=== PATIENT | female | born 1960 | race Caucasian/White ===

== ENCOUNTER 2020-09-15 14:14 | Emergency (ER) | payer BC ==
[2020-09-15 15:24] VITALS: BP 190/85; PULSE 68; RESP 20; TEMP 97.8
--- NOTE | 2020-09-15 16:27 | ED ---
General Adult HPI - General Source: patient, RN notes reviewed Mode of arrival: ambulatory Limitations: no limitations <Dane Baugh - Last Filed: 09/15/20 16:23> <Gayathri Nguyen - Last Filed: 09/16/20 07:55> - General Chief complaint: Recheck/Abnormal Lab/Rx Stated complaint: COVID exposure Time Seen by Provider: 09/15/20 16:23 - History of Present Illness Initial comments: 59-year-old female with a past medical history of asthma, thyroid disorder presents to the emergency room for a chief complaint of needing a covid test. Patient reports that her tested positive today. Patient reports that she has not had any symptoms of Covid. States she feels well at this time but was told she should get tested.Patient has no other complaints at this time including shortness of breath, chest pain, abdominal pain, nausea or vomiting, headache, or visual changes. (Dane Baugh) - Related Data Allergies Allergy/AdvReac Type Severity Reaction Status Date / Time egg Allergy Abdominal Verified 09/15/20 15:25 Pain Review of Systems ROS Other: All systems not noted in ROS Statement are negative. <Dane Baugh - Last Filed: 09/15/20 16:23> ROS Other: All systems not noted in ROS Statement are negative. <Gayathri Nguyen - Last Filed: 09/16/20 07:55> ROS Statement: Those systems with pertinent positive or pertinent negative responses have been documented in the HPI. Past Medical History Past Medical History: Asthma, Thyroid Disorder History of Any Multi-Drug Resistant Organisms: None Reported Past Surgical History: Tubal Ligation Additional Past Surgical History / Comment(s): thyroidectomy Past Psychological History: No Psychological Hx Reported Smoking Status: Never smoker Past Alcohol Use History: None Reported Past Drug Use History: None Reported <Dane Baugh - Last Filed: 09/15/20 16:23> General Exam Limitations: no limitations General appearance: alert, in no apparent distress Head exam: Present: atraumatic, normocephalic, normal inspection Eye exam: Present: normal appearance, PERRL, EOMI. Absent: scleral icterus, conjunctival injection, periorbital swelling ENT exam: Present: normal exam, mucous membranes moist Neck exam: Present: normal inspection. Absent: tenderness, meningismus, lymphadenopathy Respiratory exam: Present: normal lung sounds bilaterally. Absent: respiratory distress, wheezes, rales, rhonchi, stridor Cardiovascular Exam: Present: regular rate, normal rhythm, normal heart sounds. Absent: systolic murmur, diastolic murmur, rubs, gallop, clicks <Dane Baugh - Last Filed: 09/15/20 16:23> Course Vital Signs 09/15/20 15:19 Temperature 97.8 F Pulse Rate 68 Respiratory 20 Rate Blood Pressure 190/85 O2 Sat by Pulse 99 Oximetry Medical Decision Making <Dane Baugh - Last Filed: 09/15/20 16:23> <Gayathri Nguyen - Last Filed: 09/16/20 07:55> - Medical Decision Making Vitals are stable. Pt has high blood pressure in the emergency room, states she is stressed because her was admitted. It states she just saw her doctor last week and a pressure looks okay. She will follow up for this. Patient is well-appearing. Coronavirus test is negative. I did discuss risk of false negative with patient. At this time patient is stable for discharge home. She should follow up with primary care. She can return here for any worsening symptoms. (Dane Baugh) I was available for consultation in the emergency department. The history and physical exam were done by the midlevel provider. I was consulted for this patients care. I reviewed the case with the midlevel provider and based on their presentation of the patient, I agree with the assessment, medical decision making and plan of care as documented. Chart was dictated using [employer] dictation software. Attempts were made to correct any dictation errors however some typographical errors may persist. (Gayathri Nguyen) - Lab Data Lab Results 09/15/20 Range/Units 15:30 Coronavirus (PCR) Not Detected (Not Detectd) Disposition Is patient prescribed a controlled substance at d/c from ED?: No Time of Disposition: 16:26 <Dane Baugh - Last Filed: 09/15/20 16:23> <Gayathri Nguyen - Last Filed: 09/16/20 07:55> Clinical Impression: Lab test negative for COVID-19 virus Disposition: HOME SELF-CARE Condition: Good Instructions (If sedation given, give patient instructions): Coronavirus Disease 2019 (COVID-19) Additional Instructions: Please follow-up with your primary care doctor. Make sure to have your blood pressure rechecked. Return to the emergency room for any worsening symptoms. Referrals: Rosangela Kumar DO [Primary Care Provider] - 1-2 days
== END 2020-09-15 16:30 | disposition home or self-care (01) ==
LOC: EC 14:14
DX: Z20.822 Contact with and (suspected) exposure to COVID-19 (principal); J45.909 Unspecified asthma, uncomplicated
CPT/HCPCS: 87635; 99283

== ENCOUNTER 2020-10-10 16:25 | Emergency (ER) | payer BC ==
[2020-10-10] MEDS ORDERED: SODIUM CHLORIDE 0.9% 1,000 ML IV STA (17:23)
[2020-10-10] MEDS ORDERED: LORazepam 2 MG/ML INJ IV STA (17:24)
--- NOTE | 2020-10-10 17:28 | ED ---
General Adult HPI - General Chief complaint: Recheck/Abnormal Lab/Rx Stated complaint: Hypertension Time Seen by Provider: 10/10/20 17:09 Source: patient, RN notes reviewed Mode of arrival: ambulatory Limitations: no limitations - History of Present Illness Initial comments: Patient is a pleasant 59-year-old female presenting to the emergency Department with complaints of reported high blood pressure. Patient did recently lose her . Patient amiss to having stress. Patient went to the doctor's office today and had high blood pressure. Patient did receive Catapres 0.12 doses. Last dose was around 1 hour ago. Other than feeling stressed patient has no other physical complaints. No chest pain or dyspnea. No headache. No weakness or confusion. Patient does have history of hypertension. - Related Data Previous Rx's Medication Instructions Recorded ALPRAZolam [Xanax] 0.5 mg PO Q8HR PRN #8 tablet 10/10/20 Allergies Allergy/AdvReac Type Severity Reaction Status Date / Time egg Allergy Abdominal Verified 10/10/20 17:04 Pain aspirin AdvReac Nausea & Verified 10/10/20 17:04 Vomiting Review of Systems ROS Statement: Those systems with pertinent positive or pertinent negative responses have been documented in the HPI. ROS Other: All systems not noted in ROS Statement are negative. Constitutional: Denies: fever Eyes: Denies: eye pain ENT: Denies: ear pain Respiratory: Denies: cough Cardiovascular: Denies: chest pain Endocrine: Denies: fatigue Gastrointestinal: Denies: abdominal pain Genitourinary: Denies: dysuria Musculoskeletal: Denies: back pain Skin: Denies: rash Neurological: Denies: weakness Psychiatric: Reports: anxiety Past Medical History Past Medical History: Asthma, Thyroid Disorder History of Any Multi-Drug Resistant Organisms: None Reported Past Surgical History: Tubal Ligation Additional Past Surgical History / Comment(s): thyroidectomy Past Psychological History: No Psychological Hx Reported Smoking Status: Never smoker Past Alcohol Use History: None Reported Past Drug Use History: None Reported General Exam Limitations: no limitations General appearance: alert, in no apparent distress Head exam: Present: normocephalic Eye exam: Present: normal appearance, PERRL, EOMI Neck exam: Present: normal inspection Respiratory exam: Present: normal lung sounds bilaterally Cardiovascular Exam: Present: regular rate, normal rhythm Expanded Peripheral pulses: 2+: Radial (R), Radial (L), Posterior Tibialis (R), Posterior Tibialis (L) GI/Abdominal exam: Present: soft. Absent: tenderness Extremities exam: Present: normal inspection. Absent: pedal edema, calf tenderness Neurological exam: Present: alert, CN II-XII intact. Absent: motor sensory deficit Expanded Neurological exam: Present: protecting the airway Speech: Present: fluid speech Motor strength exam: RUE: 5, LUE: 5, RLE: 5, LLE: 5 Eye Response: (4) open spontaneously Motor Response: (6) obeys commands Verbal Response: (5) oriented Psychiatric exam: Present: normal affect, normal mood Skin exam: Present: normal color Course Vital Signs 10/10/20 17:01 Temperature 97.9 F Pulse Rate 86 Respiratory 18 Rate Blood Pressure 162/83 O2 Sat by Pulse 98 Oximetry EKG Findings - EKG Comments: EKG Findings:: Normal sinus rhythm with a rate of 68. GA 168. QRS 150. QT 438. QTC 465. Left axis. Nonspecific interventricular block. Repolarization changes. Medical Decision Making - Medical Decision Making Patient reevaluated and resting comfortably in bed, symptom free. Blood pressure 140/63. Patient and family updated. - Lab Data Result diagrams: 10/10/20 17:30 10/10/20 17:30 Lab Results 10/10/20 10/10/20 10/10/20 Range/Units 17:30 17:30 17:30 WBC 6.2 (3.8-10.6) k/uL RBC 4.03 (3.80-5.40) m/uL Hgb 12.3 (11.4-16.0) gm/dL Hct 36.5 (34.0-46.0) % MCV 90.5 (80.0-100.0) fL MCH 30.6 (25.0-35.0) pg MCHC 33.8 (31.0-37.0) g/dL RDW 14.0 (11.5-15.5) % Plt Count 246 (150-450) k/uL MPV 6.8 Neutrophils % 63 % Lymphocytes % 27 % Monocytes % 6 % Eosinophils % 2 % Basophils % 0 % Neutrophils # 3.9 (1.3-7.7) k/uL Lymphocytes # 1.7 (1.0-4.8) k/uL Monocytes # 0.4 (0-1.0) k/uL Eosinophils # 0.1 (0-0.7) k/uL Basophils # 0.0 (0-0.2) k/uL Sodium 135 L (137-145) mmol/L Potassium 4.5 (3.5-5.1) mmol/L Chloride 102 (98-107) mmol/L Carbon Dioxide 29 (22-30) mmol/L Anion Gap 4 mmol/L BUN 17 (7-17) mg/dL Creatinine 0.63 (0.52-1.04) mg/dL Est GFR (CKD-EPI)AfAm >90 (>60 ml/min/1.73 sqM) Est GFR (CKD-EPI)NonAf >90 (>60 ml/min/1.73 sqM) Glucose 95 (74-99) mg/dL Calcium 9.3 (8.4-10.2) mg/dL Total Bilirubin 0.3 (0.2-1.3) mg/dL AST 25 (14-36) U/L ALT 17 (4-34) U/L Alkaline Phosphatase 63 (38-126) U/L Total Protein 6.9 (6.3-8.2) g/dL Albumin 4.1 (3.5-5.0) g/dL Urine Color Colorless Urine Appearance Clear (Clear) Urine pH 7.0 (5.0-8.0) Ur Specific [place] 1.004 (1.001-1.035) Urine Protein Negative (Negative) Urine Glucose (UA) Negative (Negative) Urine Ketones Negative (Negative) Urine Blood Negative (Negative) Urine Nitrite Negative (Negative) Urine Bilirubin Negative (Negative) Urine Urobilinogen <2.0 (<2.0) mg/dL Ur Leukocyte Esterase Moderate H (Negative) Urine RBC 1 (0-5) /hpf Urine WBC 5 (0-5) /hpf Ur Squamous Epith Cells 1 (0-4) /hpf Urine Bacteria Rare H (None) /hpf Disposition Clinical Impression: Hypertension Disposition: HOME SELF-CARE Condition: Stable Instructions (If sedation given, give patient instructions): Hypertension (ED) Additional Instructions: Please do follow-up with primary care physician in the next day or 2 for recheck. Return for uncontrolled blood pressure, cane or weakness, worsening or changing symptoms or other concerns. Prescriptions: ALPRAZolam [Xanax] 0.5 mg PO Q8HR PRN #8 tablet PRN Reason: Anxiety Is patient prescribed a controlled substance at d/c from ED?: Yes When asked, does pt state using other controlled substances?: No If prescribed controlled substance>3 days was MAPS reviewed?: Prescribed <3 Days Referrals: Rosangela Kumar DO [Primary Care Provider] - 1-2 days Time of Disposition: 19:12
[2020-10-10 17:50] LABS: Basophils % (A) 0 %; Eosinophils # (A) 0.1 k/uL (0-0.7); Eosinophils % (A) 2 %; HCT 36.5 % (34.0-46.0); HGB 12.3 gm/dL (11.4-16.0); Lymphocytes # (A) 1.7 k/uL (1.0-4.8); Lymphocytes % (A) 27 %; MCH 30.6 pg (25.0-35.0); MCHC 33.8 g/dL (31.0-37.0); MCV 90.5 fL (80.0-100.0); Mean Platelet Volume 6.8; Monocytes # (A) 0.4 k/uL (0-1.0); Monocytes % (A) 6 %; Neutrophils # (A) 3.9 k/uL (1.3-7.7); Neutrophils % (A) 63 %; Platelet Count 246 k/uL (150-450); RBC 4.03 m/uL (3.80-5.40); WBC 6.2 k/uL (3.8-10.6)
[2020-10-10 17:55] LABS: Appearance,Urine Clear (Clear); Bacteria,Urine Rare /hpf; Bilirubin,Urine Negative (Negative); Blood,Urine Negative (Negative); Color,Urine Colorless; Glucose,Urine (UA) Negative (Negative); Ketones,Urine Negative (Negative); Leukocyte Esterase,Urine Moderate (Negative); Nitrite,Urine Negative (Negative); Protein,Urine Negative (Negative); RBC,Urine 1 /hpf (0-5); Specific Gravity,Urine 1.004 (1.001-1.035); Squamous Epithelial Cell,Urine 1 /hpf (0-4); Urobilinogen,Urine <2.0 mg/dL (<2.0); WBC,Urine 5 /hpf (0-5)
[2020-10-10 17:59] LABS: ALT 17 U/L (4-34); AST 25 U/L (14-36); African American GFR (CKD) >90 (>60 ml/min/1.73 sqM); Albumin 4.1 g/dL (3.5-5.0); Alkaline Phosphatase 63 U/L (38-126); Anion Gap 4 mmol/L; Blood Urea Nitrogen 17 mg/dL (7-17); Calcium 9.3 mg/dL (8.4-10.2); Carbon Dioxide 29 mmol/L (22-30); Chloride 102 mmol/L (98-107); Glucose 95 mg/dL (74-99); Non-African American GFR(CKD) >90 (>60 ml/min/1.73 sqM); Potassium 4.5 mmol/L (3.5-5.1); Sodium 135 mmol/L (137-145); Total Bilirubin 0.3 mg/dL (0.2-1.3); Total Protein 6.9 g/dL (6.3-8.2)
--- NOTE | 2020-10-10 18:29 | XR ---
EXAMINATION TYPE: XR chest 2V DATE OF EXAM: 10/10/2020 COMPARISON: NONE HISTORY: Abnormal cardiogram TECHNIQUE: FINDINGS: Heart and mediastinum are normal. Lungs are clear. Diaphragm is normal. There is minor spur ring in the thoracic spine. There are chest leads. IMPRESSION: No active cardiopulmonary disease. Normal heart.
[2020-10-10 19:12] VITALS: BP 140/63; PULSE 661; RESP 81; TEMP 98
== END 2020-10-10 19:34 | disposition home or self-care (01) ==
LOC: EC 16:25
DX: I10 Essential (primary) hypertension (principal); J45.909 Unspecified asthma, uncomplicated
CPT/HCPCS: 36415; 93005; 80053; 85025; 81001; 71046; 99284; 96374; 96361 ×2; J2060